=== PATIENT | female | born 1935 | race Caucasian/White ===

== ENCOUNTER 2016-07-23 13:30 | Outpatient (CLI) | payer MEDICARE, BC ==
[2013-09-07 00:02] VITALS: O2SAT 94
== END 2016-07-23 13:31 | disposition home or self-care (01) | DRG 561 ==
LOC: CONVCARE 13:30
PROVIDERS: ATTEND Orthopaedic Surgery
DX: Z47.1 Aftercare following joint replacement surgery (principal); M19.012 Primary osteoarthritis, left shoulder; Z96.641 Presence of right artificial hip joint
CPT/HCPCS: 73030; 73502

== ENCOUNTER 2016-08-11 21:07 | Emergency (ER) | payer MEDICARE, BC ==
[2016-08-11] MEDS ORDERED: NITROGLYCERIN 0.4 MG TAB SL PRN ×2 (21:13→21:42)
[2016-08-11] MEDS ORDERED: ASPIRIN 81 MG CHEWABLE CTB PO STA (21:13)
[2016-08-11] MEDS ORDERED: SODIUM CHLORIDE 0.9% FLUSH 10 ML SOL IV PRN (21:13)
[2016-08-11] MEDS ORDERED: ASPIRIN 81 MG CHEWABLE CTB ONE (21:18)
[2016-08-11 21:24] LABS: BASOPHILS % (AUTO) 1 % (0-3); EOSINOPHILS % (AUTO) 0 % (0-9); HEMATOCRIT 34 % (35-47); MEAN CORPUSCULAR HGB CONC 34.6 gm/dl (32.0-36.0); MEAN CORPUSCULAR VOLUME 82 fL (81-99); MONOCYTES % (AUTO) 15.7 % (0-12); NEUTROPHILS % (AUTO) 71.9 % (37-80)
[2016-08-11 21:41] LABS: CALCIUM 8.5 mg/dl (8.5-10.1); GLOM FILT RATE 79 mL/min (>60); POTASSIUM 3.8 mMol/L (3.5-5.1); SODIUM 135 mMol/L (136-145)
[2016-08-11] MEDS ORDERED: ALBUTEROL/IPRATROPIUM 1 VIAL SOL INH ONE (21:42)
[2016-08-11 21:43] VITALS: TEMP 98.4
[2016-08-11] MEDS ORDERED: LORAZEPAM 2 MG/ML SOL IV ONE (22:02)
[2016-08-11 23:03] VITALS: BP 139/52; PULSE 86; RESP 16; O2SAT 94
== END 2016-08-11 22:49 | disposition home or self-care (01) | DRG 313 ==
LOC: ED 21:07
DX: R07.89 Other chest pain (principal)
CPT/HCPCS: 36415; 71010; 80048; 82550; 84484; 85025; 85610; 85730; 93005; 96374; 99284; 99285; J2060; J7620

== ENCOUNTER 2016-08-13 10:24 | Outpatient (CLI) | payer MEDICARE, BC ==
[2016-08-15 23:40] VITALS: O2SAT 99
== END 2016-08-13 10:25 | disposition home or self-care (01) | DRG 556 ==
LOC: CONVCARE 10:24
PROVIDERS: ATTEND Orthopaedic Surgery
DX: M25.512 Pain in left shoulder (principal); Z96.612 Presence of left artificial shoulder joint
CPT/HCPCS: 73030

== ENCOUNTER 2016-08-15 22:52 | Emergency (ER) | payer MEDICARE, BC ==
[2016-08-15 23:00] VITALS: RESP 18; TEMP 97.6
[2016-08-15] MEDS ORDERED: KETOROLAC TROMETHAMINE 30 MG/ML SOL IM ONE (23:20)
[2016-08-15] MEDS ORDERED: KETOROLAC TROMETHAMINE 30 MG/ML SOL ONE (23:22)
[2016-08-15] MEDS ORDERED: ENOXAPARIN 80 MG SOL SC ONE (23:23)
[2016-08-15] MEDS ORDERED: ENOXAPARIN 80 MG SOL SC SCH (23:30)
[2016-08-15 23:40] VITALS: BP 156/68; PULSE 62; O2SAT 99
== END 2016-08-15 23:36 | disposition home or self-care (01) | DRG 607 ==
LOC: ED 22:52
DX: R22.32 Localized swelling, mass and lump, left upper limb (principal); G89.18 Other acute postprocedural pain
CPT/HCPCS: 96372; 99283; 99284; J1650; J1885

== ENCOUNTER 2016-09-24 11:03 | Outpatient (CLI) | payer MEDICARE, BC ==
[2016-08-15 23:40] VITALS: O2SAT 99
== END 2016-09-24 11:04 | disposition home or self-care (01) | DRG 561 ==
LOC: CONVCARE 11:03
PROVIDERS: ATTEND Orthopaedic Surgery
DX: Z47.1 Aftercare following joint replacement surgery (principal); Z96.612 Presence of left artificial shoulder joint
CPT/HCPCS: 73030

== ENCOUNTER 2017-08-26 13:57 | Outpatient (CLI) | payer MEDICARE, BC ==
[2016-08-15 23:40] VITALS: O2SAT 99
== END 2017-08-26 13:58 | disposition home or self-care (01) | DRG 566 ==
LOC: CONVCARE 13:57
PROVIDERS: ATTEND Orthopaedic Surgery
DX: Z96.642 Presence of left artificial hip joint (principal); Z96.619 Presence of unspecified artificial shoulder joint; Z51.89 Encounter for other specified aftercare
CPT/HCPCS: 73030; 73502

== ENCOUNTER 2018-07-01 10:19 | Day surgery (SDC) | payer OTHER ==
[~2018-07-01 10:19] MED LIST: FENTANYL 100MCG/2ML SOL ONE; MIDAZOLAM 2 MG/2 ML SOL ONE
[2018-07-01 10:38] VITALS: RESP 16; O2SAT 97
[2018-07-01] MEDS: PHENYLEPHRINE HCL 10% OPHTHAL SOL ONE ×3 (10:44→10:50)
[2018-07-01] MEDS: TROPICAMIDE 1% OPHTH SOL ONE ×3 (10:44→10:50)
[2018-07-01] MEDS: CYCLOPENTOLATE 1% SOL ONE ×3 (10:44→10:50)
[2018-07-01] MEDS ORDERED: KETOROLAC/HOME 0.5% SOL RIGHTEYE ONE ×3 (10:45→10:51)
[2018-07-01] MEDS ORDERED: MOXIFLOXACIN-HOME SOL RIGHTEYE ONE ×2 (10:45→10:48)
[2018-07-01] MEDS: TETRACAINE HCL 0.5 % 1 DROP SOL ONE ×2 (10:51→12:24)
[2018-07-01] MEDS ORDERED: LIDOCAINE HCL 2% MPF 10 ML SOL ONE (11:47)
[2018-07-01] MEDS ORDERED: BSS W/ 0.5 MG P.F. EPI 1 BOTTLE ONE (11:47)
[2018-07-01] MEDS ORDERED: POVIDONE IODINE 5% SOL ONE (11:47)
[2018-07-01] MEDS ORDERED: ACETAZOLAMIDE 250 MG PO ONE (12:46)
[2018-07-01 13:44] VITALS: BP 173/85; PULSE 54; TEMP 97.6
== END 2018-07-01 13:35 | disposition home or self-care (01) | DRG 125 ==
LOC: SURG 10:19
PROVIDERS: ATTEND Ophthalmology
DX: H25.89 Other age-related cataract (principal)
CPT/HCPCS: J2250; J3010; A9270-GY

== ENCOUNTER 2018-07-15 11:50 | Day surgery (SDC) | payer OTHER ==
[2018-07-15] MEDS ORDERED: MIDAZOLAM 2 MG/2 ML SOL ONE (12:07)
[2018-07-15] MEDS ORDERED: FENTANYL 100MCG/2ML SOL ONE (12:07)
[2018-07-15 12:09] VITALS: RESP 16; O2SAT 98
[2018-07-15] MEDS: TROPICAMIDE 1% OPHTH SOL ONE ×2 (12:11→12:14)
[2018-07-15] MEDS: CYCLOPENTOLATE 1% SOL ONE ×3 (12:11→12:17)
[2018-07-15] MEDS: PHENYLEPHRINE HCL 10% OPHTHAL SOL ONE ×3 (12:11→12:17)
[2018-07-15] MEDS: KETOROLAC 0.5% OPTH 60 DROP SOL ONE ×3 (12:12→12:18)
[2018-07-15] MEDS ORDERED: MOXIFLOXACIN-HOME SOL LEFTEYE ONE ×2 (12:12→12:15)
[2018-07-15] MEDS: TETRACAINE HCL 0.5 % 1 DROP SOL ONE ×3 (12:17→13:16)
[2018-07-15] MEDS ORDERED: LIDOCAINE HCL 2% MPF 10 ML SOL ONE (13:10)
[2018-07-15] MEDS ORDERED: POVIDONE IODINE 5% SOL ONE (13:10)
[2018-07-15] MEDS ORDERED: BSS W/ 0.5 MG P.F. EPI 1 BOTTLE ONE (13:10)
[2018-07-15] MEDS ORDERED: ACETAZOLAMIDE 250 MG PO ONE (13:38)
[2018-07-15 13:55] VITALS: BP 164/74; PULSE 54; TEMP 98
== END 2018-07-15 14:11 | disposition home or self-care (01) | DRG 125 ==
LOC: SURG 11:50
PROVIDERS: ATTEND Ophthalmology
DX: H25.89 Other age-related cataract (principal)
CPT/HCPCS: J2250; J3010; A9270-GY